=== PATIENT | female | born 1955 | race Caucasian/White ===

== ENCOUNTER → 2022-05-15 13:39 | Outpatient (BNVA) | payer OTHER, SELFPAY | PROVIDERS: Visit Provider Nurse Practitioner Family | DX: Z13.89 Encounter for screening for other disorder (principal) ==

== ENCOUNTER 2022-10-28 12:14 | Day surgery (SDC) | payer OTHER, SELFPAY ==
--- NOTE | 2022-10-27 10:53 | HO.ANESPROP2 ---
Documented by User: Joya Kang NP 10/27/22 10:54 HPI - Anesthesia Eval Consult details Narrative: 67yo F for Colonoscopy [facility] Past Medical History Medical History Anxiety Family History Family History Father HTN (hypertension) Surgical History Surgical History Hx of colonoscopy Social History Social History Household Members: Significant Other Alcohol intake: current Patient Tobacco Use Status: Never used Tobacco Are you DNR?: No Advance Directives: No Advance Directives Information Provided: Yes Nutrition Risks: No Nutritional Risk Meds Allergies Allergy/AdvReac Type Severity Reaction Status Date / Time No Known Allergies Allergy Verified 10/28/22 12:34 Home Medications Medication Instructions Recorded Confirmed Last Taken Type alendronate 70 mg tablet 70 mg PO QWEEK 05/15/22 10/28/22 Unknown History fluoxetine 40 mg capsule 40 mg PO DAILY 05/15/22 10/28/22 Unknown History Exam Exam Date and Time: October 27, 2022 1053 Assessment and Plan Assessment Anesthesia Assessment: Chart Reviewed Documented by User: Shima Douglas MD 10/28/22 14:25 [facility] Active Problems Active Problems: Osteoporosis Anxiety Past Medical History Medical History Anxiety Family History Family History Father HTN (hypertension) Surgical History Surgical History Hx of colonoscopy Social History Social History Household Members: Significant Other Alcohol intake: current Patient Tobacco Use Status: Never used Tobacco Are you DNR?: No Advance Directives: No Advance Directives Information Provided: Yes Nutrition Risks: No Nutritional Risk Meds Allergies Allergy/AdvReac Type Severity Reaction Status Date / Time No Known Allergies Allergy Verified 10/28/22 12:34 Home Medications Medication Instructions Recorded Confirmed Last Taken Type alendronate 70 mg tablet 70 mg PO QWEEK 05/15/22 10/28/22 Unknown History fluoxetine 40 mg capsule 40 mg PO DAILY 05/15/22 10/28/22 Unknown History Exam Height,Weight and Vital Signs: Height 5 ft 6 in Weight 75.296 kg Vital Signs Temp Pulse Resp BP Pulse Ox O2 Del Method 10/28/22 12:49 98.1 F 75 18 136/54 L 97 Room Air Assessment and Plan Final Anesthetic Review Assessment/Block/Sedation in SS: Assess/Block/Sedation-SS Documented by User: Ann Song MD 10/28/22 13:48 [facility] Past Medical History Medical History Anxiety Family History Family History Father HTN (hypertension) Family history of problems with anesthesia: No Surgical History Surgical History Hx of colonoscopy History of Problems with Anesthesia: No Social History Social History Household Members: Significant Other Alcohol intake: current Patient Tobacco Use Status: Never used Tobacco Are you DNR?: No Advance Directives: No Advance Directives Information Provided: Yes Nutrition Risks: No Nutritional Risk Meds Allergies Allergy/AdvReac Type Severity Reaction Status Date / Time No Known Allergies Allergy Verified 10/28/22 12:34 Home Medications Medication Instructions Recorded Confirmed Last Taken Type alendronate 70 mg tablet 70 mg PO QWEEK 05/15/22 10/28/22 Unknown History fluoxetine 40 mg capsule 40 mg PO DAILY 05/15/22 10/28/22 Unknown History Exam Airway Mallampati Class: II TM Dist: <=3cm Neck ROM: Full Heart: rrr Lungs: cta Assessment and Plan Assessment Anesthesia Assessment: Anesthesia Plan Discussed Final Anesthetic Review Family History of Problems with Anesthesia: No History of Problems with Anesthesia: No NPO: Yes ASA Class: II Final Preanesthetic Review: No Changes in Pt Med Stat, Meds/Allgs Chart Reviewed, Consent Obtained/Reviewed and Anes Risks/Benef Reviewed Patient Risk: Low Procedure Risk: Low Anesthetic Plan Anesthetic Plan: MAC: Disposition: Standard PACU
[2022-10-28 12:16] VITALS: BMI 26.8
[2022-10-28] MEDS: Lactated Ringers 1,000 ML 100 ML IVCONT (12:40)
[2022-10-28 12:49] VITALS: BP 136/54; PULSE 75; RESP 18; TEMP 36.7; O2SAT 97
--- NOTE | 2022-10-28 12:53 | MHC.SHP ---
Pre-Procedural Eval Section A Date of Service: 10/28/22 Section B Chief Complaint: Encounter for screening for malignant neoplasm Relevant Social History: None Present Medications: see Short Stay Collaborative assessment Medical History: No relevant PMH History of Previous Operations: No relevant previous surgery Allergies: Allergies Allergy/AdvReac Type Severity Reaction Status Date / Time No Known Allergies Allergy Verified 10/28/22 12:34 Review of Systems Review of Systems Comment: Ten point ROS negative Exam Exam Comment: Gen appear: No acute distress HEENT: no icterus Chest: No overt resp distress Abd: soft, nontender, nondistended Psych: Stable affect, answering questions appropriately Neuro: A/Ox3 noted to move all extremities spontaneously Ext: no peripheral edema Plan Diagnosis/Plan: Unchanged I have reviewed the history and physical and performed a pertinent physical examination on my patient. No changes have occurred unless specified. Time Spent With Patient Time: Total time managing care of this patient today ____ minutes.
--- NOTE | 2022-10-28 12:54 | P.OP_ITS ---
Operative Note Operative Note Narrative: Procedure: Colonoscopy Indication: [Screening] [Personal history of polyps] [Chronic Diarrhea] [Lower GI bleeding] [Anemia] [+ FIT test] [Family history of colon cancer] Endoscopist: Jamila Manley MD Anesthesia Provider: Anesthesia type: [MAC] [General Anesthesia] Instrument: Olympus [id number]-H190L Consent: Indication, risks vs benefits, and alternatives were discussed with the patient who gave written informed consent to proceed. [An forest ranger technician was utilized to assist with the consent]. Monitoring: EKG, pulse, pulse oximetry and blood pressure were monitored throughout the procedure. Please see anesthesia flowsheet. Procedure: The patient was brought to the procedure room and placed in the left lateral decubitus position. IV medications were administered by the anesthesia provider in attendance. A digital rectal exam was performed which was [normal] [abnormal due to finding of hemorrhoids, anal tag, anal fistula]. The colonoscope was then inserted through the anus and advanced through the colon to the cecum at [cm,][and terminal ileum]. Mucosa was carefully examined under high definition white light as the instrument was slowly withdrawn in a retrograde panoramic fashion. Retroflexion was performed in [ascending colon and] rectum. The procedure was [not difficult] [somewhat difficult]. There were no immediate obvious complications. The quality of the prep was BBPS: []+[]+[] = [adequate] [inadequate in] Withdrawal time [] minutes. Limitations: [No limitations.] [Poor prep.] Findings: Mucosa: [Normal to cecum and terminal ileum.] [Loss of normal vacular pattern] [Erythema and congestion] [Erosions and ulceration] [Cobblestoning] [Random biopsies were taken to r/o microscopic colitis] [Cold forceps biopsies were taken from [colon] and sent for histology.] Protruding lesions: * [] [sessile] [semi-pedunculated] [pedunculated] polyp of size [] mm in []colon. Cold snare polypectomy was performed. The polyp was completely removed and retrieved. * [] [sessile] [semi-pedunculated] [pedunculated] polyp of size [] mm in []colon. Cold snare polypectomy was performed. The polyp was completely removed and retrieved. * [] [sessile] [semi-pedunculated] [pedunculated] polyp of size [] mm in []colon. Cold snare polypectomy was performed. The polyp was completely removed and retrieved. * [Medium] [Large] external hemorrhoids [without] stigmata of recent bleeding. Excavated lesions: * [Small] [Medium] [Large] diverticulosis of [sigmoid] [left sided] [whole] colon. Impression: 1. Normal colon mucosa 2. Total of [] polyps removed from [cecum,] [ascending,] [transverse,] [descending,] [and sigmoid] colon [and rectum]. 3. External hemorrhoids Recommendations: - Follow path results. - Repeat colonoscopy in [3] [5-7] [7-10] years if polyps are adenomas or sessile serrated.
--- NOTE | 2022-10-28 13:08 | PC.NURSE ---
report given to tank rios rn at this time.
--- NOTE | 2022-10-28 13:52 | MHC.SHP ---
Pre-Procedural Eval Section A Date of Service: 10/28/22 Section B Chief Complaint: Encounter for screening for malignant neoplasm Relevant Family History (Specify if Yes): No Relevant Social History: None Present Medications: see Short Stay Collaborative assessment Medical History: Significant History (anxiety) History of Previous Operations: Relevant previous surgery/procedure and date(s) (colonoscopy) Allergies: Allergies Allergy/AdvReac Type Severity Reaction Status Date / Time No Known Allergies Allergy Verified 10/28/22 12:34 Review of Systems Sugical H&P ROS: Negative: Constitution, Cardiovascular, Respiratory, Neurological, Psychiatric, Hem-Onc, Allergic/Immunologic, Gastrointestinal, Genitourinary, Musculoskeletal, Integumentary, Endocrine and Eyes/Ears/Nose/Throat Exam Surgical H&P Exam: Normal: HEENT, Normal: Heart, Normal: Lungs, Normal: Extremities, Normal: Abdomen, Normal: Skin and Normal: Neurological Plan Diagnosis/Plan: Unchanged I have reviewed the history and physical and performed a pertinent physical examination on my patient. No changes have occurred unless specified. Time Spent With Patient Time: Total time managing care of this patient today ____ minutes.
--- NOTE | 2022-10-28 13:53 | P.OP_ITS ---
Operative Note Operative Note Date of Service: 10/28/22 Narrative: Operative Information Procedure Description: Colonoscopy Indication: screening Anesthesia: MAC COLONOSCOPY Instrument: Olympus variable stiffness pediatric scope 190L Colonoscopy Monitoring: Vital signs and clinical assessment, continuous EKG monitoring, Pulse oximetry, Carbon Dioxide monitoring and blood pressure monitoring were done throughout the procedure. Colon withdrawal time was [] minutes. Procedure: The patient was placed in the left lateral decubitis position and pre-procedure medications were administered. After a digital rectal examination of the ano-rectum, the video colonoscope was inserted into the rectum and advanced through the colon to the cecum/TI. The colonoscope was slowly withdrawn in a retrograde panoramic fashion and the colon mucosa was carefully examined including a retroflexed view of the rectum. Findings and interventions are described below. Procedure Difficulty: easy Findings: Terminal Ileum-normal Cecum:normal Ascending Colon: normal Transverse Colon -normal Descending Colon:normal Sigmoid Colon: normal Rectum: Retroflexion with small internal hemorrhoids, grade I Anorectum - normal Colon preparation: [place] Bowel Preparation Scale Right colon; 2 Transverse colon: 3 Left colon; 2 (0 = Unprepared colon segment with mucosa not seen due to solid stool that cannot be cleared. 1 = Portion of mucosa of the colon segment seen, but other areas of the colon segment not well seen due to staining, residual stool and/or opaque liquid. 2 = Minor amount of residual staining, small fragments of stool and/or opaque liquid, but mucosa of colon segment seen well. 3 = Entire mucosa of colon segment seen well with no residual staining, small fragments of stool or opaque liquid) Impression and Post Procedure Diagnosis: internal hemorrhoids Plan: High fiber diet leaflet Avoid straining at stool, epsom salts and sitz bath, anusol supps or cream Repeat Colonoscopy in 10 years or earlier if clinically indicated Above findings were reviewed with the patient and relevant handouts were provided if indicated.
[2022-10-28 14:33] VITALS: BP 93/47; PULSE 60; RESP 16; TEMP 36.3; O2SAT 99
[2022-10-28 14:49] VITALS: BP 125/60; PULSE 60; RESP 16; TEMP 36.4; O2SAT 100
== END 2022-10-28 15:46 | disposition home or self-care (01) ==
PROVIDERS: PCP Nurse Practitioner Family; Visit Provider Internal Medicine Gastroenterology
PROC: 0DJD8ZZ Inspection of Lower Intestinal Tract, Via Natural or Artificial Opening Endoscopic (ICD-10-PCS; CPT 45378; principal; 2022-10-28 13:50)
DX: Z12.11 Encounter for screening for malignant neoplasm of colon (principal); K64.0 First degree hemorrhoids; F41.1 Generalized anxiety disorder; Z79.899 Other long term (current) drug therapy
CPT/HCPCS: 45378

== ENCOUNTER → 2022-10-28 12:14 | Outpatient (BNV) | payer OTHER, SELFPAY | PROVIDERS: PCP Nurse Practitioner Family; Visit Provider Internal Medicine Gastroenterology | DX: Z12.11 Encounter for screening for malignant neoplasm of colon (principal); K64.0 First degree hemorrhoids | CPT/HCPCS: 45378 ==

== ENCOUNTER 2022-11-11 11:14 | Outpatient (AMB) | payer OTHER, SELFPAY ==
[2022-11-11 11:18] VITALS: BP 111/58; PULSE 81; BMI 26.3
--- NOTE | 2022-11-11 11:18 | A.OFFVIS_ITS ---
Intake Vital Signs 11/11/22 11:18 Height 5 ft 6 in Weight 163 lb 2.273 oz BMI 26.3 BP 111/58 L Blood Pressure Location Lt brachial Position Sitting Pulse 81 Intake Visit Reasons: S/P [place]; Dr. salazar Intake Note: Heidy presents in the office as a follow up colonoscopy. CC: She states that she is just here for results - no concerns today. Supervisor Paper Testing Required: No Allergies No Known Allergies Allergy (Verified 11/11/22 11:18) HPI S/P [place]; Dr. salazar HPI Details LAST VISIT: Screen for colon cancer Patient denies any GI, cardiac or respiratory symptoms.? Denies any issues with anesthesia in the past.? Denies any history of sleep apnea.? No history infectious diseases in the past or present.? Not on any anticoagulation therapy.? No family or personal history of colon cancer or polyps.? Patient denies melena, hematochezia, unintentional weight loss or ribbon like stools.? Discussed at length the pre-procedure,? prep, diet & medications as well as what to expect prior, during and after the procedure.?? Stressed the importance of good bowel prep. ?Recommended the use of Vaseline or Calmoseptine OTC & baby wipes with bowel movements to promote comfort.? ?Patient verbalizes understanding and agrees to plan of care.? She was given the opportunity to ask questions and all questions answered.? We will see her after the procedure.? Findings: Terminal Ileum-normal Cecum:normal Ascending Colon: normal Transverse Colon -normal Descending Colon:normal Sigmoid Colon: normal Rectum: Retroflexion with small internal hemorrhoids, grade I Anorectum - normal Colon preparation: [place] Bowel Preparation Scale Right colon; 2 Transverse colon: 3 Left colon; 2 (0 = Unprepared colon segment with mucos a not seen due to solid stool that cannot be cleared. 1 = Portion of mucosa of the colon segme nt seen, but other areas of the colon segment not well seen due to staining, residual stool and/or opaque liquid. 2 = Minor amount of residual staining, s mall fragments of stool and/or opaque liquid, but mucosa of colon segment seen well. 3 = Entire mucosa of colon segment seen well with no residual staining, small fragments of stool or opaque liquid) Impression and Post Procedure Diagnosis: internal hemorrhoids Plan: High fiber diet leaflet Avoid straining at stool, epsom salts and sitz bath, anusol supps or cream Repeat Colonoscopy in 10 years or earlier if clinically indicated TODAY'S VISIT Patient is here today for follow-up and to discuss colonoscopy results. Patient reports no ill effects from the prep, anesthesia or procedure itself. Patient states that she has been feeling well. Denies melena, hematochezia, unintentional weight loss or ribbon like stools. Patient denies any dyspepsia, dysphagia or odynophagia. Patient denies any GI concerning symptoms. Here today to discuss colonoscopy results. Internal hemorrhoids found with no polyps. Patient reports that she has been eating healthy. Denies any rectal pain or discomfort. Colorectal screening recommended in 10 years, sooner if clinically necessary. [facility] Medical History Anxiety Surgical History Hx of colonoscopy Family History Father HTN (hypertension) Social History Household Members: Significant Other Alcohol intake: current Patient Tobacco Use Status: Never used Tobacco Review of Systems Const Denies weight gain and Denies weight loss ENT Reports no additional complaints, Denies dysphagia and Denies odynophagia Card Reports no additional complaints Resp Reports no additional complaints GI Denies abdominal pain, Denies belching, Denies melena, Denies bloating, Denies change in bowel habits, Denies dysphagia, Denies excessive flatus, Denies dyspepsia, Denies heartburn, Denies diarrhea, Denies loose stools, Denies nausea, Denies odynophagia and Denies vomiting Musc Reports no additional complaints Neuro Reports no additional complaints Psych Reports no additional complaints Endo Reports no additional complaints Physical Exam Vital Signs: Last Vital Signs Pulse 81 11/11/22 11:18 BP 111/58 L 11/11/22 11:18 BMI result Body Mass Index 26.3 Const General: healthy appearing, no acute distress and well developed Nutritional Appearance: well nourished Orientation/consciousness: patient oriented x3 HEENT Head: Yes normal to inspection, Yes normocephalic and Yes atraumatic Face and sinus: Yes normal facial exam Mouth: Normal oral and palatal mucosa present Throat: Yes posterior oropharynx normal, Yes tonsils normal and Yes uvula midline Eyes General: appearance normal, both eyes and all related structures Neck Neck: Yes normal visual inspection, Yes full ROM and Yes trachea midline Thyroid: Thyroid normal Resp Effort & Inspection: normal respiratory effort, able to speak in complete sentences, no tracheal deviation and symmetric chest movement Auscultation: clear to auscultation bilaterally Cardio Rate: regular rate Heart sounds: S1 normal heart sound present and S2 normal heart sound present GI Inspection: Yes normal to inspection and No distended Palpation (GI): Soft to palpation, not firm, nontender and No hepatosplenomegaly present Auscultation: normal bowel sounds General: Yes no CVA tenderness Back/Spine/Pelvis Back: no CVA tenderness Skin General skin exam: elasticity normal, turgor normal and dry skin Neuro General: patient oriented x3 Psych Appearance: grossly normal Mental Status: mental status grossly normal Speech and movement: Normal speech and movement present Assessment & Plan Assessment & Plan (1) Status post colonoscopy: Code(s): Z98.890 - Other specified postprocedural states (2) Hemorrhoid: Code(s): K64.9 - Unspecified hemorrhoids Qualifiers: Hemorrhoid type: first degree Qualified Code(s): K64.0 - First degree hemorrhoids Plan No family history of colorectal cancer. Normal colonoscopy, asymptomatic screening in 10 years, sooner if clinically necessary. Patient has no GI concerning symptoms and will follow-up in our office on as needed basis. Patient is agreeable to this plan and verbalizes understanding of instructions. She was given the opportunity to ask questions and all questions answered. Thank you for allowing me to participate in her care Coding Level of Care Code Est Pt Level 3 (46977) Diagnoses Status post colonoscopy Z98.890 Grade I hemorrhoids K64.0 Hemorrhoid type: first degree Time Spent (min) 25 Comment 15 minutes spent with patient and additional 10 minutes spent reviewing her records
== END 2022-11-11 12:48 | disposition home or self-care (01) ==
PROVIDERS: Visit Provider Nurse Practitioner Family
DX: Z98.890 Other specified postprocedural states (principal); K64.0 First degree hemorrhoids
CPT/HCPCS: 99213

== ENCOUNTER → 2022-11-11 11:14 | Outpatient (BNVA) | payer OTHER, SELFPAY | PROVIDERS: Visit Provider Nurse Practitioner Family ==